=== PATIENT | male | born 1965 | race Caucasian/White ===

== ENCOUNTER 2017-03-08 13:45 | Observation (INO) | payer OTHER ==
[2017-03-08] MEDS ORDERED: NS 1,000 ML IV ONE (14:10)
[2017-03-08] MEDS ORDERED: ONDANSETRON 4 MG/2 ML VIAL IVP ONE (14:10)
[2017-03-08] MEDS ORDERED: LIDOCAINE 1% 100 MG in NS 100 ML IV ONE (14:11)
[2017-03-08] MEDS ORDERED: KETOROLAC 15 MG/1 ML SDV IVP ONE (14:11)
--- NOTE | 2017-03-08 14:11 | EDPHY ---
H & P Time Seen by Provider: 03/08/17 14:01 HPI/ROS: CHIEF COMPLAINT: Severe abdominal pain HISTORY OF PRESENT ILLNESS: Symptoms developed around noon when he was sitting at work. Developed sharp left lower quadrant abdominal pain which does not radiate and is severe. Associated with nausea and vomiting. He noted some brown urine yesterday. He has done to water enemas the last 2 days and did have a dildo in his rectum within the last 48 hours. REVIEW OF SYSTEMS: Eye: no change in vision ENT: no sore throat Cardiac: no chest pain or syncope Pulmonary: no cough or SOB Abdomen: HPI, no testicular or penile symptoms Musculoskeletal: no back pain Skin: no rash Neuro: no headache Constitutional: no fever : no urinary symptoms A comprehensive 10 point review of systems is otherwise negative aside from elements mentioned in the history of present illness. PAST MEDICAL HISTORY: Negative, no previous abdominal surgery. Family history: Brother with renal colic Social history: Nonsmoker General Appearance: Alert and conversant, cooperative. Eyes: No scleral icterus. ENT, Mouth: Normal mucous membranes. Respiratory: Normal respiratory effort, breath sounds equal, lungs are clear to auscultation. Cardiovascular: Regular rate and rhythm. Gastrointestinal: Abdomen is soft and non tender. Normal male . No rebound or guarding. Neurological: Alert and oriented x3. Normally conversant. Face symmetric, normal movement and sensation in all extremities. Skin: Warm and dry, no rashes. Musculoskeletal: No peripheral edema and no joint swelling. Psychiatric: Not agitated. Emergency Department course/MDM: Patient requesting pain medication treatment without opioids. Creatinine 1.3. Toradol 15 mg IV, Zofran 4 mg IV, lidocaine 100 mg IV. High suspicion for renal colic. Discussed imaging with recent history of enema and rectal foreign body insertion to exclude intestinal perforation, consented. Ketamine 20 mg IV. Patient was offered opioids, declined. 1616: CT per [place] 6mm proximal UPJ stone with hydronephrosis. 1624: CT reviewed and results discussed with the patient. More comfortable now after IV fentanyl. Has a business trip planned for this coming week and would prefer early surgical intervention. Plan for admission for pain control and urology consultation, given large proximal stone and multiple medications needed to control pain. 1651: Dr. Parrish from urology will consult. NPO after MN. Smoking Status: Never smoked Constitutional: Initial Vital Signs Temperature (C) 37.0 C 03/08/17 13:48 Heart Rate 62 03/08/17 13:48 Respiratory Rate 18 03/08/17 13:48 Blood Pressure 155/92 H 03/08/17 13:48 O2 Sat (%) 97 03/08/17 13:48 O2 Delivery Mode Room Air Allergies/Adverse Reactions: Opioids - Morphine Analogues Allergy (Verified 03/08/17 16:50) Other-Enter Comments Home Medications: Medication Instructions Recorded NK [No Known Home Meds] 03/08/17 Medical Decision Making - Diagnostics Imaging Results: Imaging Impressions Abdomen/Pelvis CT 03/08/17 14:10 Impression: 1. 6-mm stone at the left ureteropelvic junction with moderate obstructive uropathy with perinephric and periureteric fluid consistent with forniceal rupture. 2. Bilateral nephrolithiasis. 3. Mild diffuse bladder wall thickening, which could be related to bladder outlet obstruction, inflammation, or infection. 4. Additional findings as above. Findings discussed with Jadon Valdez 03/08/2017, at 1617 hours. Attention: This CT examination is specifically designed to evaluate patients who are clinically suspected of having acute obstructive uropathy. This examination does not use radiographic contrast, and as such, provides only a limited evaluation of the abdomen, pelvis and retroperitoneum. If there is further clinical suspicion for pathological conditions other than obstructive uropathy, a complete CT evaluation of the abdomen and pelvis utilizing intravenous and oral contrast should be considered. Differential Diagnosis: Differential considered including but not limited to intestinal perforation, renal colic, gastroenteritis, diverticulitis. Consult/Admit Bed Type: [place] [id number] - Data Points Laboratory Results: 03/08/17 14:01 POC Hgb 16.7 gm/dL gm/dL (13.7-17.5) POC Hct 49 % % (40-51) POC Sodium 142 mEq/L mEq/L (134-144) POC Potassium 4.2 mEq/L mEq/L (3.3-5.0) POC Chloride 99 mEq/L mEq/L (97-110) POC BUN 12 mg/dL mg/dL (7-23) POC Creatinine 1.3 mg/dL mg/dL (0.7-1.3) POC Glucose 98 mg/dL mg/dL (70-100) Medications Given: Discontinued Medications Fentanyl (Sublimaze) 50 mcg IVP EDNOW ONE Stop: 03/08/17 15:25 Last Admin: 03/08/17 15:29 Dose: 50 mcg Sodium Chloride (Ns) 1,000 mls @ 0 mls/hr IV EDNOW ONE; Wide Open PRN Reason: Protocol Stop: 03/08/17 14:11 Last Admin: 03/08/17 14:18 Dose: 1,000 mls Lidocaine HCl 100 mg/ Sodium (Chloride) 110 mls @ 600 mls/hr IV EDNOW ONE Stop: 03/08/17 14:21 Last Admin: 03/08/17 14:21 Dose: 110 mls Ketamine HCl (Ketamine) 20 mg IVP EDNOW ONE Stop: 03/08/17 14:46 Last Admin: 03/08/17 14:49 Dose: 20 mg Ketorolac Tromethamine (Toradol) 15 mg IVP EDNOW ONE Stop: 03/08/17 14:12 Last Admin: 03/08/17 14:18 Dose: 15 mg Lorazepam (Ativan Injection) 1 mg IVP EDNOW ONE Stop: 03/08/17 15:10 Last Admin: 03/08/17 15:17 Dose: 1 mg Ondansetron HCl (Zofran) 4 mg IVP EDNOW ONE Stop: 03/08/17 14:11 Last Admin: 03/08/17 14:21 Dose: 4 mg Promethazine HCl (Phenergan) 12.5 mg IVP EDNOW ONE Stop: 03/08/17 15:26 Last Admin: 03/08/17 15:29 Dose: 12.5 mg Point of Care Test Results: 03/08/17 14:01 POC Sodium 142 POC Potassium 4.2 POC Chloride 99 POC BUN 12 POC Creatinine 1.3 POC Glucose 98 Departure - Departure Disposition: [facility] Acute Clinical Impression: Renal colic on left side Condition: Good Referrals: NONE *PRIMARY CARE P,. [Primary Care Provider] - As per Instructions
[2017-03-08] MEDS ORDERED: KETAMINE 100 MG/10 ML SYR IVP ONE (14:45)
[2017-03-08] MEDS ORDERED: LORazepam 2 MG/ML INJ IVP ONE (15:09)
[2017-03-08] MEDS ORDERED: fentaNYL 100 MCG/2 ML INJ IVP ONE (15:24)
[2017-03-08] MEDS ORDERED: PROMETHAZINE HCL 25 MG/ML INJ IVP ONE (15:25)
[2017-03-08] MEDS ORDERED: ONDANSETRON DISINTEGRATING 4 MG TAB PO PRN (16:40)
[2017-03-08] MEDS ORDERED: ONDANSETRON 4 MG/2 ML VIAL IVP PRN (16:40)
[2017-03-08] MEDS ORDERED: ACETAMINOPHEN 325 MG TAB PO PRN (16:40)
[2017-03-08] MEDS ORDERED: HYDROmorphONE/DILAUDID 1 MG/ML INJ IVP PRN (16:44)
[2017-03-08] MEDS ORDERED: LORazepam 0.5 MG TAB PO PRN (16:48)
[2017-03-08] MEDS ORDERED: PROMETHAZINE HCL 25 MG/ML INJ IVP PRN (16:50)
[2017-03-08] MEDS ORDERED: KETOROLAC 15 MG/1 ML SDV IVP PRN (18:01)
[2017-03-08] MEDS ORDERED: NS 1,000 ML IV SCH (18:15)
--- NOTE | 2017-03-08 18:53 | GHP ---
[f rep st] HISTORY AND PHYSICAL DATE OF ADMISSION: 03/08/2017 CHIEF COMPLAINT: Kidney stone, severe abdominal pain. HISTORY OF PRESENT ILLNESS: A 51-year-old male with no significant past medical history, presenting with sharp left lower quadrant abdominal pain. He said around noon he was sitting at his desk and noticed a twinge of pain in his left groin. It then radiated up to his pelvis and lower quadrant and was initially achy and then stabbing. It was associated with some nausea, vomiting. Had brown urine yesterday and has been drinking a lot of water since then. He has never had stones before. Denies dysuria, fevers, chills, diarrhea, or sweats. REVIEW OF SYSTEMS: I completed a 10-point review of systems, negative except as noted in HPI. PAST MEDICAL HISTORY: None. PAST SURGICAL HISTORY: None. FAMILY HISTORY: A grandfather with diabetes. Mother with rectal cancer. Dad with diabetes, heart disease. SOCIAL HISTORY: Lives in [place]. 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 Was previously a heavy drinker as well as abused opioids and benzodiazepines. He has had none of these or cigarettes for the past 2 years. ALLERGIES: No known drug allergies. MEDICATIONS: Ibuprofen p.r.n., multivitamin. PHYSICAL EXAMINATION: VITAL SIGNS: Temperature 36.8, blood pressure 105/75, heart rate 80s, respirations 16. 93% on room air. GENERAL: A well-appearing male, sitting up in bed. No acute distress. HEENT: PERRLA. EOMI. Oropharynx clear. CV: Regular rate, rhythm. No murmurs, gallops, or rubs. LUNGS: Clear to auscultation bilaterally. ABDOMEN: Soft, nontender, nondistended. Positive bowel sounds. GI: Mild left suprapubic tenderness to palpation. No abdominal pain. Positive bowel sounds. MUSCULOSKELETAL: 5/5 upper and lower extremity strength. NEURO: 2 through 12 intact. PSYCH: Alert and oriented x3. LABS: Hemoglobin 16, hematocrit 49. Sodium 142, potassium 4.2, chloride 99, BUN 12, creatinine 1.3, glucose 98. Abdominal CT: 1. 6 mm stone at the left ureteropelvic junction with moderate obstructive uropathy and perinephric and periureteric fluid, consistent with forniceal rupture. 2. Bilateral nephrolithiasis. 3. Mild diffuse bladder wall thickening. ASSESSMENT AND PLAN: 1. Left ureteropelvic junction stone: 6 mm with moderate obstructive uropathy. Pain is currently controlled. IV Dialudid PRN, IVFs, Flomax. Cr is borderline, so will not continue Toradol. Urology has been consulted from the emergency room, will see him in the morning. N.p.o. after midnight. Check a urinalysis. 2. Acute abdominal pain: due to stone. Plan as above. 3. History of opioid/benzodiazepine abuse. Has not used in 2 years. 4. Diet: Regular. 5. Deep venous thrombosis prophylaxis: Low risk. 6. Disposition: The patient warrants observation admission, given acute uncontrolled pain warranting urologic evaluation and IV opioids and Toradol. /[id number]/MODL MTDD
[2017-03-08] MEDS: TAMSULOSIN HCL 0.4 MG CAP PO SCH (23:25)
[2017-03-09] LABS: HEMATOCRIT 39.7 % (40.0-51.0); MEAN CELL HEMOGLOBIN 31.3 pg (27.9-34.1); MEAN CELL HEMOGLOBIN CONCENTR. 35.3 g/dL (32.4-36.7); MEAN CELL VOLUME 88.6 fL (81.5-99.8); RED BLOOD CELL COUNT 4.48 10^6/uL (4.40-6.38); RED CELL DISTRIBUTION WIDTH 12.2 % (11.5-15.2)
[2017-03-09 00:13] LABS: COLOR YELLOW; LEUKOCYTE ESTERASE,URINE NEGATIVE (NEGATIVE); NITRITE,URINE NEGATIVE (NEGATIVE)
[2017-03-09 00:31] LABS: AMORPHOUS PRESENT /hpf (NONE-1+); RBC,URINE 50-182 /hpf (0-3)
[2017-03-09 05:08] VITALS: O2SAT 96
[2017-03-09 05:19] LABS: ANION GAP 9 mEq/L (8-16); CALCIUM 8.7 mg/dL (8.5-10.4); CARBON DIOXIDE 25 mEq/l (22-31); CHLORIDE 108 mEq/L (97-110); CREATININE 1.2 mg/dL (0.7-1.3); GLOMERULAR FILTRATION RATE > 60; GLUCOSE 87 mg/dL (70-100); POTASSIUM 4.4 mEq/L (3.5-5.2); SODIUM 142 mEq/L (134-144)
[2017-03-09 08:42] VITALS: BP 102/59; PULSE 60; RESP 18; TEMP 98.1
[2017-03-09] MEDS ORDERED: Herbals/Supplements -Info Only PO SCH (09:00)
[2017-03-09] MEDS ORDERED: MULTIVITAMINS 1 EACH TAB PO SCH (09:00)
[2017-03-09] MEDS: TAMSULOSIN HCL 0.4 MG CAP PO SCH (10:33)
--- NOTE | 2017-03-09 11:34 | PDDCSUM ---
Discharge Summary Discharge Summary: Date of Admission: March 08, 2017 Date of Discharge: March 09, 2017 Discharge Diagnoses: Nephrolithiasis Admission Diagnoses: Nephrolithiasis Consultants: Urology-Dr. Parrish Hospital Course: Patient is a 51-year-old male who presented with sharp left lower quadrant abdominal pain. It was associated with brown urine, nausea and vomiting. He was found to have a left ureteropelvic junction stone 6 mm in size which was associated with moderate obstructive uropathy. Patient was admitted and given IV Dilaudid, IV fluids, and Flomax. The patient was feeling much better the next day when he met with the urologist. Urologist did not recommend any acute surgical intervention. Medical management was recommended. Patient was discharged to home in stable condition with prescriptions for Flomax, Dilaudid, Zofran. Condition: Stable. Discharged to: Home. Pertinent tests/labs: CT of the abdomen and pelvis without contrast: Medications: Please see med rec form. New medications per recommendation of urologist: 1. Flomax 0.4 mg 1 tab p.o. daily. 2. Dilaudid 2 mg, 1 tab p. o. q.4-6 hours as needed for severe pain. 3. Zofran 4 mg sublingual tablets 4 mg 1 tab p.o. q.8 hours as needed for nausea. Special instructions: Drink plenty of fluids to help flush out kidney stones. Follow up: Recommended the patient establish care with a primary care physician. Referred him to Dr. Arsen Walton D.O.. Patient may follow up with urologist Dr. Parrish as needed. Less than 30 minutes of total time was spent on counseling and coordination of care for this patient's discharge.
--- NOTE | 2017-03-09 13:20 | GCON ---
[f rep st] CONSULTATION DATE OF CONSULTATION: 03/09/2017 REASON FOR CONSULTATION: Flank pain. HISTORY OF PRESENT ILLNESS: A pleasant 51-year-old gentleman, who reports no prior medical problems. He had a sudden onset on severe left flank pain, which started approximately a day or two ago. He is currently asymptomatic. The pain last night had settled to his left lower quadrant, radiating to his testicle. He states he had some darkish urine yesterday, but denies any gross hematuria, fever or chills. He denies any nausea, he states he is otherwise healthy. He has had an issue with drug addiction in the past, has gone through rehab, and so he is hoping to minimize any narcotics. He denies any prior urologic history. The main issue is that he is leaving tomorrow for [place] for 2 weeks. REVIEW OF SYSTEMS: Completed a 10-point review of systems, negative except for HPI. PAST MEDICAL HISTORY: None. PAST SURGICAL HISTORY: None. FAMILY HISTORY: Mother with rectal cancer. He has diabetes in his family, and his dad has diabetes and heart disease. 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 He lives in [place]. He used to abuse opioids, alcohol and benzodiazepines, and is now clean for approximately 2 years. ALLERGIES: He denies any allergies. CURRENT MEDICATIONS: On ibuprofen prior to admission. PHYSICAL EXAMINATION: GENERAL: He is in no apparent distress, comfortable. He was asleep when I came into the room. VITAL SIGNS: His blood pressure is 105/75, heart rate 80s, respiratory rate of 16 upon admission. He is a healthy appearing male. No acute distress. HEENT: Pupils equal, round, reactive to light. EOMI. Oropharynx clear. HEART: Regular, rate and rhythm. ABDOMEN: Soft, nontender. He had no flank tenderness on exam. No bladder tenderness ___ . LABORATORY VALUES: His creatinine is 1.3, hematocrit 49. Abdominal CT revealed a left UPJ stone with mild to moderate hydronephrosis, and he had a forniceal rupture, and he had some other stones noted. ASSESSMENT AND PLAN: Patient with 6 mm ureteropelvic junction stone, who is currently asymptomatic. Recommend outpatient ESWL. We had a long discussion on the risks and benefits of ESWL versus ureteroscopy. I recommend strongly that the patient not leave on international travels. He states that if he has problems while in [place], he will just seek medical care while in [place]. We discussed the risks and benefits of stent placement, he did not want to proceed with stent placement prior to his trip, due to possible urinary problems, urinary issues from the stent. I gave him my card and contact information. When he returns from his trip from [place], he will contact my office for an appointment. I discussed with the hospitalist recommendations for Dilaudid 2 mg dose, and Tamsulosin 0.4 mg, and Zofran 4 mg dose. The patient clearly understands it is not a good idea to be on long flights while trying to pass the stone and that this could very much affect his health, and there are risks to do this, and he understands these risks and still wishes to travel. /[id number]/MODL MTDD
== END 2017-03-09 12:11 | disposition home or self-care (01) ==
LOC: F1N 17:55
PROVIDERS: ADMIT Internal Medicine; ATTEND Internal Medicine
DX: N13.1 Hydronephrosis with ureteral stricture, not elsewhere classified (principal); N20.0 Calculus of kidney; N20.1 Calculus of ureter; R93.49 Abnormal radiologic findings on diagnostic imaging of other urinary organs; F11.21 Opioid dependence, in remission
CPT/HCPCS: 74176; G0378; 82947-QW; J1885; J2060; J2405; J2550; J3010